=== PATIENT | female | born 1960 | race Caucasian/White ===

== ENCOUNTER 2017-07-07 20:57 | Emergency (ER) | payer OTHER ==
[2017-07-07] MEDS ORDERED: Sodium Chloride 0.9% 10 ML Syringe FLUSH PRN (21:07)
[2017-07-07] MEDS ORDERED: LORazepam 2 MG/ML SDV IVPUSH ONE (21:34)
[2017-07-07] MEDS ORDERED: Ketorolac 30 MG/ML SDV IVPUSH ONE (21:40)
[2017-07-07] MEDS ORDERED: Lactated Ringers 1,000 ML IV SCH (21:45)
[2017-07-07] MEDS ORDERED: Potassium Chloride 10% 20 MEQ/15 ML Soln 15 ML UD Cup PO ONE (22:04)
--- NOTE | 2017-07-07 22:09 | EDM.PDOC ---
ED HPI GENERAL MEDICAL PROBLEM - General Chief Complaint: Chest Pain Stated Complaint: CHEST PAINS Time Seen by Provider: 07/07/17 21:05 Source of Information: Reports: Patient, Family (her with Son) History Limitations: Reports: No Limitations - History of Present Illness INITIAL COMMENTS - FREE TEXT/NARRATIVE: Chest pain, intermittently since 1:30 pm today; this is a 56 year old female presents to ER with concerns of chest discomfort. Reports was in [place] all day shopping when she developed chest discomfort that extended into her arm and upper chest, this would come and go during the day. She came home, told her who is a EMT and was told to come to ER for evaluation of symptoms. Onset: Today Onset Date: 07/07/17 Onset Time: 13:30 Duration: Hour(s): Location: Reports: Chest Quality: Reports: Same as Previous Episode (history of similar symptoms, which resolved without intervention.) Severity: Mild Improves with: Reports: None Worsens with: Reports: None Associated Symptoms: Reports: Chest Pain - Related Data Allergies Allergy/AdvReac Type Severity Reaction Status Date / Time No Known Allergies Allergy Verified 07/07/17 21:10 Home Meds: Home Meds NK [No Known Home Meds] 07/07/17 [History] Past Medical History Neurological History: Reports: Brain Injury - Past Surgical History HEENT Surgical History: Reports: Tonsillectomy GI Surgical History: Reports: Cholecystectomy Social & Family History - Tobacco Use Smoking Status *Q: Never Smoker - Living Situation & Occupation Living situation: Reports: Occupation: Employed (lives in [place] with . 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, accounting/secretary to board of commissioners.) ED ROS GENERAL - Review of Systems Review Of Systems: See Below Constitutional: Reports: No Symptoms HEENT: Reports: No Symptoms Respiratory: Reports: No Symptoms Cardiovascular: Reports: Chest Pain Endocrine: Reports: No Symptoms GI/Abdominal: Reports: No Symptoms : Reports: No Symptoms Musculoskeletal: Reports: Muscle Pain Skin: Reports: No Symptoms Neurological: Reports: No Symptoms Psychiatric: Reports: Anxiety Hematologic/Lymphatic: Reports: No Symptoms Immunologic: Reports: No Symptoms ED EXAM, GENERAL - Physical Exam Exam: See Below Exam Limited By: No Limitations General Appearance: Alert, WD/WN, No Apparent Distress Eye Exam: Bilateral Eye: Normal Inspection, PERRL Ears: Normal External Exam, Normal Canal, Hearing Grossly Normal, Normal TMs Ear Exam: Bilateral Ear: Auricle Normal, Canal Normal, TM normal Nose: Normal Inspection, Normal Mucosa, No Blood Throat/Mouth: Normal Inspection, Normal Lips, Normal Teeth, Normal Gums, Normal Oropharynx, Normal Voice, No Airway Compromise Head: Atraumatic, Normocephalic Neck: Normal Inspection, Supple, Non-Tender, Full Range of Motion Respiratory/Chest: No Respiratory Distress, Lungs Clear, Normal Breath Sounds, No Accessory Muscle Use, Chest Non-Tender Cardiovascular: Normal Peripheral Pulses, Regular Rate, Rhythm, No Edema, No JVD , No Murmur, No Rub Peripheral Pulses: 2+: Radial (L), Radial (R), Dorsalis Pedis (L), Dorsalis Pedis (R) GI/Abdominal: Normal Bowel Sounds, Soft, Non-Tender, No Organomegaly, No Distention, No Abnormal Bruit, No Mass (Female) Exam: Deferred Rectal (Female) Exam: Deferred Back Exam: Normal Inspection, Full Range of Motion, NT Extremities: Normal Inspection, Normal Range of Motion, Non-Tender, Normal Capillary Refill, No Pedal Edema Neurological: Alert, Oriented, Normal Cognition, No Motor/Sensory Deficits Psychiatric: Normal Affect, Normal Mood Skin Exam: Warm, Dry, Intact, Normal Color, No Rash Lymphatic: No Adenopathy EKG INTERPRETATION Rhythm: NSR Course - Vital Signs Last Recorded V/S: Last Vital Signs Temp 37.0 C 07/07/17 21:17 Pulse 78 07/07/17 22:59 Resp 15 07/07/17 22:59 BP 122/74 07/07/17 22:59 Pulse Ox 97 07/07/17 22:59 - Orders/Labs/Meds Orders: Active Orders 24 hr Category Date Time Status EKG Documentation Completion [RC] ASDIRECTED Care 07/07/17 21:06 Active Chest 1V Frontal [CR] Urgent Exams 07/07/17 21:16 Taken Sodium Chloride 0.9% [Saline Flush] Med 07/07/17 21:07 Active 10 ml FLUSH ASDIRECTED PRN Saline Lock Insert [OM.PC] Routine Oth 07/07/17 21:07 Ordered EKG 12 Lead [EK] Urgent Ther 07/07/17 21:06 Ordered Medication Orders Sodium Chloride (Saline Flush) 10 ml FLUSH ASDIRECTED PRN PRN Reason: Keep Vein Open Last Admin: 07/07/17 23:05 Dose: 10 ml Labs: Laboratory Tests 07/07/17 07/07/17 07/07/17 Range/Units 21:06 21:06 21:06 WBC 6.2 (4.5-11.0) K/uL RBC 5.07 (3.30-5.50) M/uL Hgb 14.7 (12.0-15.0) g/dL Hct 43.7 (36.0-48.0) % MCV 86 (80-98) fL MCH 29 (27-31) pg MCHC 34 (32-36) % Plt Count 202 (150-400) K/uL Neut % (Auto) 53 (36-66) % Lymph % (Auto) 34 (24-44) % [place] % (Auto) 10 H (2-6) % Eos % (Auto) 3 (2-4) % Baso % (Auto) 1 (0-1) % PT 10.2 (9.5-12.0) sec INR 0.96 (0.80-1.20) Sodium 143 (140-148) mmol/L Potassium 3.1 L (3.6-5.2) mmol/L Chloride 103 (100-108) mmol/L Carbon Dioxide 28 (21-32) mmol/L Anion Gap 15.1 H (5.0-14.0) mmol/L BUN 11 (7-18) mg/dL Creatinine 0.9 (0.6-1.0) mg/dL Est Cr Clr Drug Dosing 62.06 mL/min Estimated GFR (MDRD) > 60 (>60) Glucose 119 H (74-106) mg/dL Calcium 9.2 (8.5-10.1) mg/dL Magnesium 2.1 (1.8-2.4) mg/dL Total Bilirubin 1.5 H (0.2-1.0) mg/dL AST 18 (15-37) U/L ALT 26 (12-78) U/L Alkaline Phosphatase 71 (46-116) U/L Troponin I < 0.017 (0.000-0.056) ng/mL Total Protein 7.1 (6.4-8.2) g/dL Albumin 4.3 (3.4-5.0) g/dL Globulin 2.8 (2.3-3.5) g/dL Albumin/Globulin Ratio 1.5 (1.2-2.2) TSH, Ultra Sensitive 2.847 (0.358-3.740) uIU/mL Urine Color Urine Appearance Urine pH (4.5-8.0) Ur Specific Reading (1.008-1.030) Urine Protein (NEGATIVE) mg/dL Urine Glucose (UA) (NEGATIVE) mg/dL Urine Ketones (NEGATIVE) mg/dL Urine Occult Blood (NEGATIVE) Urine Nitrite (NEGATIVE) Urine Bilirubin (NEGATIVE) Urine Urobilinogen (NORMAL) mg/dL Ur Leukocyte Esterase (NEGATIVE) Urine RBC (0-5) Urine WBC (0-5) Ur Epithelial Cells Amorphous Sediment Urine Bacteria Urine Mucus Urine Other Urine Opiates Screen (NEGATIVE) Ur Oxycodone Screen (NEGATIVE) Urine Methadone Screen (NEGATIVE) Ur Propoxyphene Screen (NEGATIVE) Ur Barbiturates Screen (NEGATIVE) Ur Tricyclics Screen (NEGATIVE) Ur Phencyclidine Scrn (NEGATIVE) Ur Amphetamine Screen (NEGATIVE) U Methamphetamines Scrn (NEGATIVE) Urine MDMA Screen (NEGATIVE) U Benzodiazepines Scrn (NEGATIVE) U Cocaine Metab Screen (NEGATIVE) U Marijuana (THC) Screen (NEGATIVE) 07/07/17 07/07/17 Range/Units 23:14 23:14 WBC (4.5-11.0) K/uL RBC (3.30-5.50) M/uL Hgb (12.0-15.0) g/dL Hct (36.0-48.0) % MCV (80-98) fL MCH (27-31) pg MCHC (32-36) % Plt Count (150-400) K/uL Neut % (Auto) (36-66) % Lymph % (Auto) (24-44) % [place] % (Auto) (2-6) % Eos % (Auto) (2-4) % Baso % (Auto) (0-1) % PT (9.5-12.0) sec INR (0.80-1.20) Sodium (140-148) mmol/L Potassium (3.6-5.2) mmol/L Chloride (100-108) mmol/L Carbon Dioxide (21-32) mmol/L Anion Gap (5.0-14.0) mmol/L BUN (7-18) mg/dL Creatinine (0.6-1.0) mg/dL Est Cr Clr Drug Dosing mL/min Estimated GFR (MDRD) (>60) Glucose (74-106) mg/dL Calcium (8.5-10.1) mg/dL Magnesium (1.8-2.4) mg/dL Total Bilirubin (0.2-1.0) mg/dL AST (15-37) U/L ALT (12-78) U/L Alkaline Phosphatase (46-116) U/L Troponin I (0.000-0.056) ng/mL Total Protein (6.4-8.2) g/dL Albumin (3.4-5.0) g/dL Globulin (2.3-3.5) g/dL Albumin/Globulin Ratio (1.2-2.2) TSH, Ultra Sensitive (0.358-3.740) uIU/mL Urine Color Yellow Urine Appearance Clear Urine pH 5.0 (4.5-8.0) Ur Specific Reading 1.025 (1.008-1.030) Urine Protein Negative (NEGATIVE) mg/dL Urine Glucose (UA) Normal (NEGATIVE) mg/dL Urine Ketones Negative (NEGATIVE) mg/dL Urine Occult Blood Large (NEGATIVE) Urine Nitrite Negative (NEGATIVE) Urine Bilirubin Small (NEGATIVE) Urine Urobilinogen 1 (NORMAL) mg/dL Ur Leukocyte Esterase Small (NEGATIVE) Urine RBC 0-5 (0-5) Urine WBC 0-5 (0-5) Ur Epithelial Cells Few Amorphous Sediment Not seen Urine Bacteria Few Urine Mucus Not seen Urine Other Urine Opiates Screen Negative (NEGATIVE) Ur Oxycodone Screen Negative (NEGATIVE) Urine Methadone Screen Negative (NEGATIVE) Ur Propoxyphene Screen Negative (NEGATIVE) Ur Barbiturates Screen Negative (NEGATIVE) Ur Tricyclics Screen Negative (NEGATIVE) Ur Phencyclidine Scrn Negative (NEGATIVE) Ur Amphetamine Screen Negative (NEGATIVE) U Methamphetamines Scrn Negative (NEGATIVE) Urine MDMA Screen Negative (NEGATIVE) U Benzodiazepines Scrn Negative (NEGATIVE) U Cocaine Metab Screen Negative (NEGATIVE) U Marijuana (THC) Screen Negative (NEGATIVE) Meds: Medications Generic Name Dose Route Start Last Admin Trade Name Freq PRN Reason Stop Dose Admin Sodium Chloride 10 ml 07/07/17 21:07 07/07/17 23:05 Saline Flush FLUSH 10 ml ASDIRECTED PRN Administration Keep Vein Open Discontinued Medications Generic Name Dose Route Start Last Admin Trade Name Stephanie PRN Reason Stop Dose Admin Lactated Ringer's 1,000 mls @ 999 mls/hr 07/07/17 21:45 Ringers, Lactated IV ASDIRECTED CATHY Ketorolac Tromethamine 30 mg 07/07/17 21:40 07/07/17 23:03 Toradol IVPUSH 07/07/17 21:41 30 mg ONETIME ONE Administration Lorazepam 1 mg 07/07/17 21:34 07/07/17 23:06 Ativan IVPUSH 07/07/17 21:35 Not Given ONETIME ONE Potassium Chloride 20 meq 07/07/17 22:04 07/07/17 23:04 Potassium Chloride Solution PO 07/07/17 22:05 20 meq ONETIME ONE Administration - Re-Assessments/Exams Free Text/Narrative Re-Assessment/Exam: 07/08/17 00:16 given IV Ativan, PO Potassium 20 meq, IV Toradol; symptoms completely resolved Labs all normal except low Potassium at 3.1 discussed atypical chest pain vs muscle strain vs anxiety or panic advise to follow up with Primary Care for recheck, return to ER if symptoms return Mrs. Kolb and her Son, agree with plan of care. Departure - Departure Time of Disposition: 00:19 Disposition: Home, Self-Care 01 Condition: Good Clinical Impression: Atypical chest pain, Low blood potassium Instructions: Nonspecific Chest Pain Referrals: PCP,None [Primary Care Provider] - Forms: ED Department Discharge Care Plan Goals: Atypical chest pain -may take Ativan 1 mg every 12 hours as needed for anxiety or chest symptoms -may take Naproxen 500mg every 12 hours as needed for muscle pain Low Potassium -given Potassium replacement in ER -will need to follow up with Primary Care for recheck. Please make any appointment with Primary Care Provider for recheck in next 3 to 5 day Return to ER if symptoms return or has any concerns. - Problem List & Annotations (1) Atypical chest pain SNOMED Code(s): 852912337 Code(s): R07.89 - OTHER CHEST PAIN Status: Acute Priority: High Current Visit: Yes (2) Low blood potassium SNOMED Code(s): 86562963 Code(s): E87.6 - HYPOKALEMIA Status: Acute Priority: Medium Current Visit: Yes - Problem List Review Problem List Initiated/Reviewed/Updated: Yes - My Orders Last 24 Hours: My Active Orders 07/07/17 21:06 EKG Documentation Completion [RC] ASDIRECTED EKG 12 Lead [EK] Urgent 07/07/17 21:07 Sodium Chloride 0.9% [Saline Flush] 10 ml FLUSH ASDIRECTED PRN Saline Lock Insert [OM.PC] Routine 07/07/17 21:16 Chest 1V Frontal [CR] Urgent - Assessment/Plan Last 24 Hours: My Active Orders 07/07/17 21:06 EKG Documentation Completion [RC] ASDIRECTED EKG 12 Lead [EK] Urgent 07/07/17 21:07 Sodium Chloride 0.9% [Saline Flush] 10 ml FLUSH ASDIRECTED PRN Saline Lock Insert [OM.PC] Routine 07/07/17 21:16 Chest 1V Frontal [CR] Urgent Plan: Atypical chest pain -may take Ativan 1 mg every 12 hours as needed for anxiety or chest symptoms -may take Naproxen 500mg every 12 hours as needed for muscle pain Low Potassium -given Potassium replacement in ER -will need to follow up with Primary Care for recheck. Please make any appointment with Primary Care Provider for recheck in next 3 to 5 day Return to ER if symptoms return or has any concerns.
--- NOTE | 2017-07-09 11:13 | CR ---
Chest 1V Frontal INDICATION: chest pain FINDINGS: Heart size normal. Lungs are clear. Breast implants. Chest otherwise negative.
== END 2017-07-08 00:09 | disposition home or self-care (01) ==
LOC: JP.ED 20:57
DX: E87.6 Hypokalemia (principal); R07.89 Other chest pain
CPT/HCPCS: 36415; 71045; 80053; 80305; 81001; 83735; 84443; 84484; 85025; 85610; 93005; 96374; 99285; A9270; J1885; J7050

== ENCOUNTER 2017-11-27 10:17 | Day surgery (SDC) | payer OTHER ==
[~2017-11-27 10:17] MED LIST: Lidocaine 1% 50 ML MDV ONE; Lidocaine 1% with EPINEPHrine 1:100,000 50 ML MDV ONE; Midazolam 1 MG/ML 2 ML SDV ONE; Propofol 200 MG/20 ML SDV ONE; Silver Nitrate Applicator Each ONE; fentaNYL 100 MCG/2 ML SDV ONE
[2017-11-27] MEDS ORDERED: Sodium Chloride 0.9% 1,000 ML IV SCH (11:15)
[2017-11-27] MEDS ORDERED: Midazolam 1 MG/ML 2 ML SDV ONE (11:50)
[2017-11-27] MEDS ORDERED: fentaNYL 100 MCG/2 ML SDV ONE (11:50)
[2017-11-27] MEDS ORDERED: Propofol 200 MG/20 ML SDV ONE ×2 (11:50→12:46)
--- NOTE | 2017-11-27 13:13 | PCM.PRNOTE ---
- Free Text/Narrative Note: EBL <[address] Trevin Singh Sour Bleaching Pleater STEVE Swanson Complications NONE PREOPERATIVE DIAGNOSES: 1. Post menopausal endometrial thickening POSTOPERATIVE DIAGNOSES: 1. endometrial polyp PROCEDURE PERFORMED: 1. Dilatation and curettage. 2. Hysteroscopy. 3. Cervical block 4. Hysteroscopic polypectomy GROSS FINDINGS: Uterus was anteverted, mildly enlarged. The cervix without lesions. Endometrial polyp from the right and posterior endometrial wall PROCEDURE: The patient was taken to the operating room where she was properly prepped and draped in sterile manner under sedation. After bimanual examination , the cervix was exposed with a weighted vaginal speculum and the anterior lip of the cervix grasped with a vulsellum tenaculum. Cervical block was achieved with 20mL of 1% lidocaine. The endocervical canal was then progressively dilated with Hanks and Hegar dilators to a #10 Hegar. The hysteroscope was then introduced into the uterine cavity using sterile saline solution as a distending media and with attached video camera. The endometrial cavity was distended with fluids and the cavity visualized. Polyp was see as described above. Resection was performed with the polyp forces, scissors and grasper and polyp was removed. The coronal areas were visualized bilaterally with corresponding tubal ostia. A moderate amount of proliferative appearing endometrium was noted. There were no direct intraluminal lesions seen. The patient tolerated the procedure well. Several pictures were taken of the endometrial cavity and the hysteroscope removed from the cavity. A large sharp curet was then used to obtain a moderate amount of tissue, which was the sent to pathologist for analysis. The instrument was removed from the vaginal vault. The patient was sent to recovery area in satisfactory postoperative condition.
== END 2017-11-27 15:00 | disposition home or self-care (01) ==
LOC: JP.SDS 10:17
PROVIDERS: ATTEND Obstetrics & Gynecology
DX: N84.0 Polyp of corpus uteri (principal); K21.9 Gastro-esophageal reflux disease without esophagitis; Z79.899 Other long term (current) drug therapy
CPT/HCPCS: 58558; 88305; J2250; J2704; J3010; J7030

== ENCOUNTER 2018-07-01 08:33 | Day surgery (SDC) | payer OTHER ==
[2018-07-01] MEDS ORDERED: Lactated Ringers 1,000 ML IV SCH (09:30)
[2018-07-01] MEDS ORDERED: fentaNYL 100 MCG/2 ML SDV ONE (10:25)
[2018-07-01] MEDS ORDERED: Propofol 200 MG/20 ML SDV ONE (10:25)
[2018-07-01] MEDS ORDERED: Midazolam 1 MG/ML 2 ML SDV ONE (10:25)
--- NOTE | 2018-07-02 08:11 | OR ---
DATE OF PROCEDURE: 07/01/2018 PREOPERATIVE DIAGNOSIS: Colon cancer screening. POSTOPERATIVE DIAGNOSIS: 1. Diverticulosis. 2. Colon polyps. PROCEDURE PERFORMED: Colonoscopy to the cecum with snare cautery polypectomy at 40 cm and biopsy resection of the smaller polyp 25 cm from anal verge. ANESTHESIA: IV anesthesia with monitored anesthesia care. SURGEON: Thad Barragan MD INDICATION: This 57-year-old white female is referred for a colonoscopy for colon cancer screening. She has never had a colonoscopic exam. I counseled her for the procedure including risks and alternatives, and she gave her informed consent to proceed. DESCRIPTION OF PROCEDURE: The patient was placed in the left lateral decubitus position. IV anesthesia was administered by the Anesthesia Service. Time-out was held. A rectal exam was performed, which was unremarkable. The flexible video Olympus colonoscope was introduced through her anus, up her rectum, and out her colon all way to the cecum. En route, we saw several left-sided diverticula, there was no bleeding or inflammation associated with them. Also, in the left colon at 25 cm from an anal verge, we saw a smaller polyp, which was removed with the biopsy forceps and at 40 cm, a larger polyp, which was initially biopsied and then removed with the snare. This involved placing the snare about its base, elevating it up away from the bowel wall, and applying electrocautery as the polyp was amputated. The polyp was aspirated through the scope and captured in a polyp trap. Once the cecum was reached, the scope was slowly withdrawn examining the mucosa throughout. No additional mucosal abnormalities were noted. The scope was retroflexed in the rectum with the distal rectum appearing unremarkable, except for some hemorrhoidal tissue. The scope was straightened and removed. She tolerated the procedure well. Thad Barragan MD /[id number] MTDD
== END 2018-07-01 12:24 | disposition home or self-care (01) ==
LOC: JP.SDS 08:33
PROVIDERS: ATTEND Surgery
DX: Z12.11 Encounter for screening for malignant neoplasm of colon (principal); D12.5 Benign neoplasm of sigmoid colon; K57.30 Diverticulosis of large intestine without perforation or abscess without bleeding; K21.9 Gastro-esophageal reflux disease without esophagitis
CPT/HCPCS: 45380; 45385; 88305; J2250; J2704; J3010; J7120

== ENCOUNTER 2021-07-01 08:56 | Day surgery (SDC) | payer BC ==
[2021-07-01] MEDS ORDERED: Propofol 200 MG/20 ML SDV ONE (09:37)
[2021-07-01] MEDS ORDERED: fentaNYL 100 MCG/2 ML SDV ONE (09:38)
[2021-07-01] MEDS ORDERED: Ondansetron 4 MG/2 ML SDV ONE (09:38)
[2021-07-01] MEDS ORDERED: Midazolam 1 MG/ML 2 ML SDV ONE (09:38)
[2021-07-01 09:49] LABS: CORONAVIRUS COVID-19 NAA NEGATIVE (NEGATIVE)
[2021-07-01] MEDS ORDERED: Sodium Chloride 0.9% 1,000 ML IV SCH (10:00)
== END 2021-07-01 14:20 | disposition home or self-care (01) ==
LOC: JP.SDS 08:56
PROVIDERS: ATTEND Surgery
DX: Z12.11 Encounter for screening for malignant neoplasm of colon (principal); D12.4 Benign neoplasm of descending colon; K57.30 Diverticulosis of large intestine without perforation or abscess without bleeding; K21.9 Gastro-esophageal reflux disease without esophagitis; Z01.812 Encounter for preprocedural laboratory examination; Z20.822 Contact with and (suspected) exposure to COVID-19
CPT/HCPCS: 0241U; 45380; J2250; J2405; J2704; J3010; J7030

== ENCOUNTER 2023-02-02 20:19 | Emergency (ER) | payer BC ==
[2023-02-02] MEDS ORDERED: Sodium Chloride 0.9% 10 ML Syringe FLUSH PRN (21:11)
[2023-02-02 21:19] LABS: BASOPHILS ABSOLUTE AUTO 0.08 K/uL (0.00-0.10); BASOPHILS PERCENT AUTO 1.3 % (0.1-1.3); EOSINOPHILS ABSOLUTE AUTO 0.37 K/uL (0.00-0.40); EOSINOPHILS PERCENT AUTO 6.1 % (0.0-5.4); HEMATOCRIT 39.6 % (34.3-46.0); HEMOGLOBIN 13.5 g/dL (11.2-15.5); IMMATURE GRAN ABSOLUTE AUTO 0.01 K/uL (0.00-0.23); IMMATURE GRAN PERCENT AUTO 0.2 % (0.0-0.7); LYMPHOCYTES ABSOLUTE AUTO 2.44 K/uL (0.8-3.3); LYMPHOCYTES PERCENT AUTO 40.4 % (11.4-47.7); MEAN CORPUSCULAR HEMOGLOBIN 29.2 pg (31.6-35.5); MEAN CORPUSCULAR HGB CONC 34.1 g/dL (31.6-35.5); MEAN CORPUSCULAR VOLUME 85.7 fL (81.4-99.0); MONOCYTES ABSOLUTE AUTO 0.63 K/uL (0.20-0.90); MONOCYTES PERCENT AUTO 10.4 % (3.3-12.6); NEUTROPHILS ABSOLUTE AUTO 2.51 K/uL (1.0-7.6); NEUTROPHILS PERCENT AUTO 41.6 % (40.0-78.1); PLATELET COUNT,PLT 187 K/uL (130-375); RED BLOOD CELL COUNT 4.62 M/uL (3.77-5.24)
[2023-02-02 21:29] LABS: A/G RATIO 1.3 (1.2-2.2); ALANINE AMINOTRANSFERASE,ALT 25 U/L (12-78); ALBUMIN 3.8 g/dL (3.4-5.0); ALKALINE PHOSPHATASE 63 U/L (46-116); ANION GAP 12.1 mmol/L (5.0-14.0); ASPARTATE AMNIOTRANSFERASE,AST 23 U/L (15-37); BLOOD UREA NITROGEN,BUN 9 mg/dL (7-18); C-REACTIVE PROTEIN <0.05 mg/dL (0.0-0.3); CALCIUM 9.1 mg/dL (8.5-10.1); CARBON DIOXIDE,CO2 29 mmol/L (21-32); CHLORIDE,CL 103 mmol/L (100-108); CREATININE 0.9 mg/dL (0.6-1.0); EST CRCL DRUG DOSING (CG) 57.57 mL/min; ESTIMATED GFR 72 mL/min (>60); GLUCOSE RANDOM 117 mg/dL (74-106); POTASSIUM,K 3.1 mmol/L (3.6-5.2); PROTEIN TOTAL,TP 6.7 g/dL (6.4-8.2); SODIUM,NA 141 mmol/L (140-148); TROPONIN I HIGH SENSITIVITY 5.4 pg/mL (<=60.3)
== END 2023-02-03 01:13 | disposition home or self-care (01) ==
LOC: JP.ED 20:19
DX: R07.89 Other chest pain (principal); I45.10 Unspecified right bundle-branch block
CPT/HCPCS: 36415; 80053; 84484; 85025; 85379; 86140; 93005; 99285

== ENCOUNTER 2023-04-27 06:23 | Day surgery (SDC) | payer BC ==
[2023-04-27] MEDS ORDERED: Lactated Ringers 1,000 ML IV SCH (07:00)
[2023-04-27] MEDS ORDERED: fentaNYL 50 MCG/ML SDV ONE (07:10)
[2023-04-27] MEDS ORDERED: Propofol 200 MG/20 ML SDV ONE (07:10)
[2023-04-27] MEDS ORDERED: Dexamethasone 4 MG/ML SDV ONE (07:11)
[2023-04-27] MEDS ORDERED: Ondansetron 4 MG/2 ML SDV ONE (07:11)
== END 2023-04-27 09:13 | disposition home or self-care (01) ==
LOC: JP.SDS 06:23
PROVIDERS: ATTEND Student in an Organized Health Care Education/Training Program
DX: K31.7 Polyp of stomach and duodenum (principal); K29.50 Unspecified chronic gastritis without bleeding; K20.90 Esophagitis, unspecified without bleeding; K22.89 Other specified disease of esophagus
CPT/HCPCS: 88305; 88342; J1100; J2405; J2704; J3010; J7120

== ENCOUNTER 2024-12-31 07:29 | Day surgery (SDC) | payer BC, OTHER ==
[2024-12-31] MEDS ORDERED: Propofol 200 MG/20 ML SDV ONE (07:42)
[2024-12-31] MEDS ORDERED: fentaNYL 50 MCG/ML SDV ONE (07:42)
[2024-12-31] MEDS: Lactated Ringers 1,000 ML IV SCH (08:27)
== END 2024-12-31 09:54 | disposition home or self-care (01) ==
LOC: JP.SDS 07:29
PROVIDERS: ATTEND Surgery
DX: K20.90 Esophagitis, unspecified without bleeding (principal); K22.89 Other specified disease of esophagus
CPT/HCPCS: 00731; 43239; 88305; J2704; J3010; J7120